=== PATIENT | male | born 1970 | race Caucasian/White ===

== ENCOUNTER 2018-03-17 19:49 | Emergency (ER) | payer MEDICAID ==
[~2018-03-17] VITALS: Ht 188 cm; Wt 72.0 kg
[~2018-03-17 19:49] MED LIST: CLIN150C8 PO
[2018-03-17 20:04] VITALS: BP 126/75
[2018-03-17] MEDS ORDERED: CLIN300C85 PO (21:16)
== END 2018-03-17 21:32 | disposition home or self-care (01) ==
LOC: ER 19:49
DX: K08.89 Other specified disorders of teeth and supporting structures (principal); M19.90 Unspecified osteoarthritis, unspecified site; G89.29 Other chronic pain; F17.200 Nicotine dependence, unspecified, uncomplicated; Z88.0 Allergy status to penicillin; Z79.2 Long term (current) use of antibiotics
CPT/HCPCS: 99283

== ENCOUNTER 2018-06-17 21:37 | Emergency (ER) | payer MEDICAID ==
[~2018-06-17] VITALS: Ht 188 cm; Wt 52.0 kg
[~2018-06-17 21:37] MED LIST changes: +CLIN-96 PO
[2018-06-17 21:42] VITALS: BP 153/90
== END 2018-06-17 22:52 | disposition home or self-care (01) ==
LOC: ER 21:38
DX: R59.0 Localized enlarged lymph nodes (principal); G89.29 Other chronic pain; M19.90 Unspecified osteoarthritis, unspecified site; F12.90 Cannabis use, unspecified, uncomplicated; F17.200 Nicotine dependence, unspecified, uncomplicated; Z88.0 Allergy status to penicillin; Z79.899 Other long term (current) drug therapy
CPT/HCPCS: 99281

== ENCOUNTER 2018-11-16 11:08 | Emergency (ER) | payer MEDICAID ==
[~2018-11-16] VITALS: Ht 188 cm; Wt 77.3 kg
[2018-11-16 11:10] VITALS: BP 123/73
--- NOTE | 2018-11-16 11:48 | NUR ---
patient very drowsy, moving all extremities wnl and answering questions appropriately
== END 2018-11-16 12:55 | disposition home or self-care (01) ==
LOC: ER 11:09
DX: E86.0 Dehydration (principal); R41.0 Disorientation, unspecified; M19.90 Unspecified osteoarthritis, unspecified site; G89.29 Other chronic pain; F12.90 Cannabis use, unspecified, uncomplicated; Z02.89 Encounter for other administrative examinations; Z88.0 Allergy status to penicillin; Z79.2 Long term (current) use of antibiotics; Z88.8 Allergy status to other drugs, medicaments and biological substances
CPT/HCPCS: 99284

== ENCOUNTER 2019-01-15 04:52 | Emergency (ER) | payer MEDICAID ==
[~2019-01-15] VITALS: Ht 188 cm; Wt 77.3 kg
[2019-01-15 04:58] VITALS: BP 126/88
[2019-01-15] MEDS ORDERED: ibuprofen tablet 400 MG TABLET PO ONE (05:10)
--- NOTE | 2019-01-15 05:37 | NUR ---
here for a medical screening exam for [place]. No c/o anything.
== END 2019-01-15 05:39 | disposition home or self-care (01) ==
LOC: ER 04:53
DX: F10.10 Alcohol abuse, uncomplicated (principal); M19.90 Unspecified osteoarthritis, unspecified site; G89.29 Other chronic pain; F12.90 Cannabis use, unspecified, uncomplicated; Z88.0 Allergy status to penicillin; Z79.899 Other long term (current) drug therapy; Z59.0 Homelessness; Y90.9 Presence of alcohol in blood, level not specified
CPT/HCPCS: 99282

== ENCOUNTER 2020-05-15 10:48 | Emergency (ER) | payer MEDICAID, OTHER ==
[~2020-05-15] VITALS: Ht 188 cm; Wt 84.1 kg
[~2020-05-15 10:48] MED LIST changes: -CLIN-96 PO; +CLIN-97 PO
[2020-05-15 11:00] VITALS: BP 174/87
== END 2020-05-15 12:32 | disposition home or self-care (01) ==
LOC: ER 10:52
DX: Z02.89 Encounter for other administrative examinations (principal); M19.90 Unspecified osteoarthritis, unspecified site; G89.29 Other chronic pain; F12.90 Cannabis use, unspecified, uncomplicated; Z72.89 Other problems related to lifestyle; Z88.0 Allergy status to penicillin; Z79.2 Long term (current) use of antibiotics
CPT/HCPCS: 99281

== ENCOUNTER 2020-05-18 09:53 | Emergency (ER) | payer OTHER ==
[~2020-05-18] VITALS: Ht 188 cm; Wt 84.1 kg
[2020-05-18 10:13] VITALS: BP 111/77
--- NOTE | 2020-05-18 10:20 | NUR ---
PT RELEASED FROM [facility] METH. PT LAST USED PRIOR TO [facility] AND IS HERE FOR MED CLEAR TO [facility] IN LOCKE. PT STATES HIS PO WILL BE TAKING HIM TOMORROW AM APROX 0830 WITH PT ARRIVING APROX 1200. CALL PLACED TO [facility] [phone] TO INQUIRE IF THEY WILL ACCEPT THE MEDICAL CLEARANCE FROM THIS AM IT MIGHT BE OVER 24HR BECAUSE OF DRIVE TIME. PT GAVE PERMISSON TO SPEAK WITH STAFF AT [facility]. STAFF MEMBER STATES HE NEEDS TO CONTACT THE PERSON IN CHARGE AND ASKS IF WE COULD CALL BACK IN 45MIN-1HR.
--- NOTE | 2020-05-18 11:10 | NUR ---
CALLED BACK [facility] SPOKE WITH [facility] HE STATES [facility] PO IS BRING PT DOWN THEY WILL ACCEPT THE MED CLEAR.
== END 2020-05-18 11:27 | disposition home or self-care (01) ==
LOC: ER 09:53
DX: F10.20 Alcohol dependence, uncomplicated (principal); M19.90 Unspecified osteoarthritis, unspecified site; G89.29 Other chronic pain; F12.90 Cannabis use, unspecified, uncomplicated; F15.90 Other stimulant use, unspecified, uncomplicated; Z87.81 Personal history of (healed) traumatic fracture; Z88.0 Allergy status to penicillin; Z79.2 Long term (current) use of antibiotics; Y90.9 Presence of alcohol in blood, level not specified
CPT/HCPCS: 99281

== ENCOUNTER 2021-10-16 22:08 | Emergency (ER) | payer MEDICAID ==
[~2021-10-16] VITALS: Ht 188 cm; Wt 68.2 kg
[2021-10-16 22:18] VITALS: BP 142/99
--- NOTE | 2021-10-17 00:02 | NUR ---
PT STATES HE CANT WAIT ANY LONGER HE HAS TO WORK IN THE MORNING. PT LEFT STATING HE'LL BE BACK IN THE MORNING. INFORMED.
== END 2021-10-17 00:04 | disposition home or self-care (01) ==
LOC: ER 22:08
DX: R21 Rash and other nonspecific skin eruption (principal); Z53.21 Procedure and treatment not carried out due to patient leaving prior to being seen by health care provider

== ENCOUNTER 2023-09-15 19:25 | Emergency (ER) | payer MEDICAID ==
[~2023-09-15] VITALS: Ht 188 cm; Wt 72.0 kg
[~2023-09-15 19:25] MED LIST changes: +CLIN-214 PO; -CLIN150C8 PO
[2023-09-15 19:31] VITALS: BP 135/93; PULSE 94; O2SAT 96
[2023-09-15] MEDS: buprenorphine/naloxone 8MG-2MG SUBlingual film SL ONE (20:51)
[2023-09-15 20:55] VITALS: RESP 17; TEMP 97.5
== END 2023-09-15 20:55 | disposition home or self-care (01) ==
LOC: ER 19:25
DX: F11.20 Opioid dependence, uncomplicated (principal)
CPT/HCPCS: 99283

== ENCOUNTER 2024-06-03 22:26 | Emergency (ER) | payer MEDICAID ==
[~2024-06-03] VITALS: Ht 188 cm; Wt 90.0 kg
[2024-06-03 22:33] VITALS: BP 150/81; PULSE 84; RESP 18; TEMP 98.2; O2SAT 97
== END 2024-06-03 23:02 | disposition home or self-care (01) ==
LOC: ER 22:27
DX: L73.1 Pseudofolliculitis barbae (principal); M19.90 Unspecified osteoarthritis, unspecified site; G89.29 Other chronic pain; Z88.0 Allergy status to penicillin; Z79.2 Long term (current) use of antibiotics
CPT/HCPCS: 99281

== ENCOUNTER 2024-06-22 05:10 | Emergency (ER) | payer MEDICAID ==
[~2024-06-22] VITALS: Ht 188 cm; Wt 48.3 kg
[2024-06-22 05:11] VITALS: BP 136/99; PULSE 80; TEMP 96.6; O2SAT 98
[2024-06-22 06:05] VITALS: RESP 18
[2024-06-22] MEDS ORDERED: ONDA-243 PO (06:56)
[2024-06-22] MEDS: ondansetron 4mg rapidly disintigrating tab PO ONE (07:07)
[2024-06-23] MEDS ORDERED: NALO4SPR22 (21:38)
[2024-06-23] MEDS ORDERED: BUPR1FIL20 (21:38)
[2024-06-23] MEDS ORDERED: GABA-1555 (21:38)
[2024-06-23] MEDS ORDERED: HYDR-3686 PO (21:38)
== END 2024-06-22 07:28 | disposition home or self-care (01) ==
LOC: ER 05:11
DX: B34.9 Viral infection, unspecified (principal); F12.90 Cannabis use, unspecified, uncomplicated; F15.90 Other stimulant use, unspecified, uncomplicated; M19.90 Unspecified osteoarthritis, unspecified site; G89.29 Other chronic pain; M54.9 Dorsalgia, unspecified; F17.200 Nicotine dependence, unspecified, uncomplicated; F10.10 Alcohol abuse, uncomplicated; Z59.00 Homelessness unspecified; Z88.0 Allergy status to penicillin; Y90.9 Presence of alcohol in blood, level not specified
CPT/HCPCS: 71046; 87502; 87503; 99284

== ENCOUNTER 2024-06-23 20:46 | Emergency (ER) | payer MEDICAID ==
[~2024-06-23] VITALS: Ht 188 cm; Wt 72.7 kg
[~2024-06-23 20:46] MED LIST changes: +ONDA-243 PO
[2024-06-23] MEDS ORDERED: HYDR-3686 PO (21:38)
[2024-06-23] MEDS ORDERED: BUPR1FIL20 (21:38)
[2024-06-23] MEDS ORDERED: NALO4SPR22 (21:38)
[2024-06-23] MEDS ORDERED: GABA-1555 (21:38)
[2024-06-23 21:39] LABS: BASOPHILS # (AUTO) 0.1 X10'3 (0-0.2); BASOPHILS % (AUTO) 0.8 % (0-1); EOSINOPHILS # (AUTO) 0.1 X10'3 (0-0.9); HEMATOCRIT 39.7 % (42.0-52.0); HEMOGLOBIN 13.5 g/dl (14.0-17.9); LYMPHOCYTES # (AUTO) 1.8 X10'3 (1.1-4.8); LYMPHOCYTES % (AUTO) 29.1 % (21-51); MEAN CORPUSCULAR HEMOGLOBIN 31.8 PG (27.0-31.0); MEAN CORPUSCULAR VOLUME 93.6 FL (78-98); MEAN PLATELET VOLUME 6.5 FL (7.4-10.4); MONOCYTES # (AUTO) 0.8 X10'3 (0-0.9); MONOCYTES % (AUTO) 12.3 % (2-12); NEUTROPHILS # (AUTO) 3.4 X10'3 (1.8-7.7); NEUTROPHILS % (AUTO) 55.8 % (42-75); PLATELET COUNT 416 X10'3 (140-440); RED BLOOD COUNT 4.24 X10'6 (4.70-6.10); RED CELL DISTRIBUTION WIDTH 13.3 % (11.5-14.5); WHITE BLOOD COUNT 6.1 X10'3 (4.5-11.0)
[2024-06-23 21:44] VITALS: BP 134/93; PULSE 68; RESP 18; TEMP 98.1; O2SAT 99
[2024-06-23] MEDS ORDERED: dicyclomine 10 MG capsule PO ONE (21:45)
[2024-06-23 21:50] LABS: ALANINE AMINOTRANSFERASE 52 U/L (12-78); ALBUMIN 3.8 G/DL (3.4-5.0); ALBUMIN/GLOBULIN RATIO 1.1 (1.1-1.5); ALKALINE PHOSPHATASE 67 IU/L (46-116); ANION GAP 6 (8-16); ASPARTATE AMINO TRANSFERASE 71 U/L (10-37); BILIRUBIN,TOTAL 0.6 MG/DL (0.1-1.0); BLOOD UREA NITROGEN 21 MG/DL (7-18); BUN/CREATININE RATIO 24.1 (10.0-20.0); CALCIUM 9.4 MG/DL (8.5-10.1); CHLORIDE 100 MMOL/L (99-107); CREATININE 0.87 MG/DL (0.60-1.10); GLUCOSE 146 MG/DL (70-104); LIPASE 21 U/L (16-77); POTASSIUM 4.2 MMOL/L (3.5-5.1); SODIUM 137 MMOL/L (135-145); TOTAL CARBON DIOXIDE 30.8 MMOL/L (24-32); TOTAL PROTEIN 7.2 G/DL (6.4-8.2); eCRCL 100 ML/MIN; eGFR > 90 ML/MIN
[2024-06-23] MEDS ORDERED: iohexol 300mg/ml 100ml inj. ONE (21:54)
[2024-06-23 22:13] LABS: ETHANOL < 10 MG/DL (<10)
[2024-06-23 22:48] LABS: BILIRUBIN,URINE NEGATIVE (Neg); CLARITY,URINE CLEAR (Clear); COLOR,URINE YELLOW (Yellow); GLUCOSE, URINE NEGATIVE (Neg); KETONES,URINE NEGATIVE (Neg); LEUKOCYTE ESTERASE ,URINE NEGATIVE (Neg); NITRITES, URINE NEGATIVE (Neg); OCCULT BLOOD,URINE NEGATIVE (Neg); PROTEIN,URINE NEGATIVE (Neg)
[2024-06-23 22:53] LABS: UA COLLECTION TYPE NON-SPECIFIED
[2024-06-23 23:15] LABS: URINE AMPHETAMINE SCREEN POSITIVE (Neg); URINE BARBITUATE SCREEN NEGATIVE (Neg); URINE BENZODIAZEPINES SCREEN NEGATIVE (Neg); URINE CANNABINOID SCREEN POSITIVE (Neg); URINE COCAINE SCREEN NEGATIVE (Neg); URINE METHADONE SCREEN NEGATIVE (Neg); URINE OPIATE SCREEN NEGATIVE (Neg); URINE PHENCYCLIDINE SCREEN NEGATIVE (Neg)
== END 2024-06-23 23:02 | disposition left against medical advice (07) ==
LOC: ER 20:47
DX: R10.84 Generalized abdominal pain (principal); M19.90 Unspecified osteoarthritis, unspecified site; G89.29 Other chronic pain; M54.9 Dorsalgia, unspecified; F12.90 Cannabis use, unspecified, uncomplicated; F15.90 Other stimulant use, unspecified, uncomplicated; F10.10 Alcohol abuse, uncomplicated; Z88.0 Allergy status to penicillin; Y90.9 Presence of alcohol in blood, level not specified
CPT/HCPCS: 36415; 80053; 80305; 80320; 81003; 83690; 85025; 99283; Q9967

== ENCOUNTER 2024-08-22 02:15 | Emergency (ER) | payer MEDICAID ==
[~2024-08-22] VITALS: Ht 185.4 cm; Wt 71.4 kg
[~2024-08-22 02:15] MED LIST changes: +BUPR1FIL20; +GABA-1555; +HYDR-3686 PO; +NALO4SPR22
[2024-08-22] MEDS ORDERED: INDO-12 PO (04:59)
--- NOTE | 2024-08-22 05:01 | Physician Documentation ---
History of Present Illness ~ General Chief Complaint: Multiple Medical Complaints Stated Complaint: EAR PAIN,DENTAL PAIN Time Seen by MD: 04:49 Primary Medical Doctor: none History of Present Illness Initial Comments Patient presents to the emergency room with chief complaint of dental pain. He just finished a course of antibiotics. He was states that the infection has improved but the pain persists. Taking ibuprofen and Tylenol with limited benefit. Affecting his sleep. He is on Suboxone Medication Reconciliation Allergies: Coded Allergies: Penicillins (Verified Adverse Reaction, Unknown, 06/23/24) Scheduled Clindamycin HCL* (Clindamycin HCL*), 1 CAP PO Q6H Clindamycin HCl (Clindamycin HCl CAPSULE), 1 CAP PO TID Scheduled PRN Hydroxyzine Hcl* (Atarax*), 1 TAB PO QID PRN for anxiety, (Reported) ONDANSETRON ODT 4mg tablet (Ondansetron Odt), 1 TAB PO Q6H PRN PRN for nausea/vomiting Miscellaneous Medications Buprenorphine HCl/Naloxone HCl (Buprenorphine-Nalox 8-2Mg Film), (Reported) Gabapentin (Gabapentin), 1, (Reported) Naloxone HCl (Naloxone HCl), (Reported) Past Medical History Past Medical History: Arthritis, Chronic Back Pain, Extremity Fracture Past Surgical History: no surgical history Alcohol Use: Abuse Drug Use: marijuana, methamphetamine Lives In: Home Occupation: employed Review of Systems ROS All review of systems negative except as per HPI Physical Exam Physical Exam Vital Signs: Temperature: 98.3, Source: Oral, Heart Rate: 71, Respiratory Rate: 16, BP: 134/89, Pulse Oximetry: 99, Weight: 71.410 Oxygen Flow Rate: 0 Physical Exam General: Patient is awake, alert, oriented x4 in no acute distress and well appearing.~ Head: Normocephalic and atraumatic. Eyes: Conjunctival normal. EOMI. PERRL. Tympanic membrane clear ENT: Mucous membranes moist. Terrible dentition but no abscess Neck: Supple, trachea is midline. Chest: Clear to auscultation bilaterally without rales, rhonchi, or wheezes. There is no accessory muscle use or retractions. Cardiac: RRR without murmurs, gallops, or rubs. Progress Results/Orders Results/Orders Vital Signs 08/22/24 02:20 Temp 98.3 Pulse 71 Resp 16 B/P (MAP) 134/89 Pulse Ox 99 O2 Flow Rate 0 Medical Decision Making Findings Patient was reports that he needs to go to the dentist to have his teeth pulled he acknowledges the responsibility to do so. ER precautions reviewed regarding worsening dental pain or abscess formation or fevers. I will not be prescribing additional antibiotics at this time. Departure Disposition: HOME / SELF CARE / HOMELESS Impression: Primary Impression: Pain, dental Condition: Stable Discharge Instructions: Dental Pain, Hlul-dj-Paan Additional Instructions: Continue with your Tylenol. Follow up with dentist. Return for fevers Referrals: NO PRIMARY CARE PROVIDER (PCP) Prescriptions Indomethacin (Indomethacin) 25 Mg Capsule 1 CAP PO Q8H, #15 CAP 0 Refills with food Prov: DEXTER BYRNE MD 08/22/24 Education Educated: Patient Educated regarding: diagnosis, treatment, need for follow up Signature Scribe Signature: No scribe Attestation: The note accurately reflects work and decisions made by me.Dexter Byrne MD 08/22/24 05:00 DEXTER BYRNE MD August 22, 2024 05:01
[2024-08-22] MEDS: HYDROcodone/acetaminophen 5mg/325mg tablet PO ONE (05:08)
[2024-08-22 05:11] VITALS: BP 130/86; PULSE 69; RESP 18; TEMP 98.6; O2SAT 99
== END 2024-08-22 05:12 | disposition home or self-care (01) ==
LOC: ER 02:16
DX: K08.89 Other specified disorders of teeth and supporting structures (principal); M19.90 Unspecified osteoarthritis, unspecified site; G89.29 Other chronic pain; M54.9 Dorsalgia, unspecified; F12.90 Cannabis use, unspecified, uncomplicated; F15.90 Other stimulant use, unspecified, uncomplicated; F10.10 Alcohol abuse, uncomplicated; Z88.0 Allergy status to penicillin; Y90.9 Presence of alcohol in blood, level not specified
CPT/HCPCS: 99283

== ENCOUNTER 2024-09-07 23:46 | Emergency (ER) | payer MEDICAID ==
[~2024-09-07] VITALS: Ht 188 cm; Wt 72.7 kg
[~2024-09-07 23:46] MED LIST changes: +INDO-12 PO
[2024-09-07 23:49] VITALS: TEMP 98.5
[2024-09-08 00:58] LABS: BASOPHILS # (AUTO) 0.1 X10'3 (0-0.2); BASOPHILS % (AUTO) 0.7 % (0-1); EOSINOPHILS # (AUTO) 0.3 X10'3 (0-0.9); EOSINOPHILS % (AUTO) 3.9 % (0-6); HEMATOCRIT 31.8 % (42.0-52.0); HEMOGLOBIN 11.1 g/dl (14.0-17.9); LYMPHOCYTES % (AUTO) 38.6 % (21-51); MEAN CORPUSCULAR HEMOGLOBIN 30.9 PG (27.0-31.0); MEAN CORPUSCULAR HGB CONC 34.9 g/dL (33.0-36.5); MEAN CORPUSCULAR VOLUME 88.5 FL (78-98); MEAN PLATELET VOLUME 6.6 FL (7.4-10.4); MONOCYTES # (AUTO) 0.8 X10'3 (0-0.9); NEUTROPHILS # (AUTO) 3.6 X10'3 (1.8-7.7); NEUTROPHILS % (AUTO) 46.8 % (42-75); PLATELET COUNT 313 X10'3 (140-440); RED BLOOD COUNT 3.59 X10'6 (4.70-6.10); RED CELL DISTRIBUTION WIDTH 12.6 % (11.5-14.5); WHITE BLOOD COUNT 7.7 X10'3 (4.5-11.0)
[2024-09-08 01:09] LABS: ALANINE AMINOTRANSFERASE 27 U/L (12-78); ALBUMIN 3.7 G/DL (3.4-5.0); ALBUMIN/GLOBULIN RATIO 1.3 (1.1-1.5); ALKALINE PHOSPHATASE 46 IU/L (46-116); ANION GAP 6 (8-16); ASPARTATE AMINO TRANSFERASE 32 U/L (10-37); BILIRUBIN,TOTAL 0.7 MG/DL (0.1-1.0); BLOOD UREA NITROGEN 21 MG/DL (7-18); BUN/CREATININE RATIO 28.8 (10.0-20.0); CALCIUM 8.8 MG/DL (8.5-10.1); CHLORIDE 99 MMOL/L (99-107); CREATININE 0.73 MG/DL (0.60-1.10); GLUCOSE 91 MG/DL (70-104); POTASSIUM 3.9 MMOL/L (3.5-5.1); SODIUM 135 MMOL/L (135-145); TOTAL CARBON DIOXIDE 29.8 MMOL/L (24-32); TOTAL PROTEIN 6.5 G/DL (6.4-8.2); eCRCL 119 ML/MIN; eGFR > 90 ML/MIN
--- NOTE | 2024-09-08 04:37 | Physician Documentation ---
History of Present Illness ~ General Chief Complaint: See Chief Complaint Stated Complaint: MED REQUEST Time Seen by MD: 04:36 Primary Medical Doctor: none Source: patient History of Present Illness Initial Comments The patient presents, requesting a prescription for Suboxone. He tells me he was in a treatment program at [facility], but left AMA yesterday. He presents now requesting Suboxone because he does not have any. He tells me he has been on this for several years. He takes 12 mg in the morning any mg at night. He denies any opiate use since his last Suboxone dose. He denies any other acute concerns at this time. Medication Reconciliation Allergies: Coded Allergies: Penicillins (Verified Adverse Reaction, Unknown, 06/23/24) Scheduled Buprenorphine Hcl/Naloxone Hcl (Suboxone 8 Mg-2 Mg Sl Film), 1 STRIP SL BID Clindamycin HCL* (Clindamycin HCL*), 1 CAP PO Q6H Clindamycin HCl (Clindamycin HCl CAPSULE), 1 CAP PO TID Indomethacin (Indomethacin), 1 CAP PO Q8H Scheduled PRN Hydroxyzine Hcl* (Atarax*), 1 TAB PO QID PRN for anxiety, (Reported) ONDANSETRON ODT 4mg tablet (Ondansetron Odt), 1 TAB PO Q6H PRN PRN for nausea/vomiting Miscellaneous Medications Buprenorphine HCl/Naloxone HCl (Buprenorphine-Nalox 8-2Mg Film), (Reported) Gabapentin (Gabapentin), 1, (Reported) Naloxone HCl (Naloxone HCl), (Reported) Past Medical History Past Medical History: Arthritis, Chronic Back Pain, Extremity Fracture Past Surgical History: no surgical history Alcohol Use: Abuse Drug Use: marijuana, methamphetamine Lives In: Home Occupation: employed Review of Systems Constitutional: Denies: fever Gastrointestinal: Denies: nausea, vomiting Physical Exam Physical Exam Vital Signs: Temperature: 98.5, Source: Oral, Heart Rate: 64, Respiratory Rate: 16, BP: 126/72, Pulse Oximetry: 96, Weight: 72.730 Oxygen Flow Rate: 0 Physical Exam General: This is a thin middle-aged man, does not appear in distress HEENT: Atraumatic, oropharynx is moist Heart: Regular rate, normal-appearing peripheral perfusion Lungs: normal work of breathing, normal oxygen saturation on room air Neuro: Alert and oriented, no focal deficits Psychiatric: Calm and cooperative with exam, does not appear tremulous, does not appear to have acute symptoms of withdrawal, does not appear acutely intoxicated Progress Results/Orders Results/Orders Completed Orders - CYNDI OMALLEY MD Cbc/Diff (09/08/24 00:01) CMP (09/08/24 00:01) Buprenorphine/Naloxone Sl Film (Suboxone (09/08/24 05:00) Vital Signs 09/07/24 09/08/24 09/08/24 23:49 04:41 04:41 Temp 98.5 Pulse 64 70 Resp 16 16 B/P (MAP) 126/72 127/86 (100) Pulse Ox 96 98 O2 Flow Rate 0 0 Laboratory Tests Test 09/08/24 00:33 White Blood Count 7.7 Red Blood Count 3.59 L Hemoglobin 11.1 L Hematocrit 31.8 L Mean Corpuscular Volume 88.5 Mean Corpuscular Hemoglobin 30.9 Mean Corpuscular Hemoglobin Concent 34.9 Red Cell Distribution Width 12.6 Platelet Count 313 Mean Platelet Volume 6.6 L Neutrophils (%) (Auto) 46.8 Lymphocytes (%) (Auto) 38.6 Monocytes (%) (Auto) 10.0 Eosinophils (%) (Auto) 3.9 Basophils (%) (Auto) 0.7 Neutrophils # (Auto) 3.6 Lymphocytes # (Auto) 3.0 Monocytes # (Auto) 0.8 Eosinophils # (Auto) 0.3 Basophils # (Auto) 0.1 CBC Comment Sodium Level 135 Potassium Level 3.9 Chloride Level 99 Carbon Dioxide Level 29.8 Anion Gap 6 L Blood Urea Nitrogen 21 H Creatinine 0.73 Estimated GFR/1.73 m2 > 90 BUN/Creatinine Ratio 28.8 H Glucose Level 91 Calcium Level 8.8 Total Bilirubin 0.7 Aspartate Amino Transf (AST/SGOT) 32 Alanine Aminotransferase (ALT/SGPT) 27 Alkaline Phosphatase 46 Total Protein 6.5 Albumin 3.7 Globulin 2.8 Albumin/Globulin Ratio 1.3 Chemistry Comments Medical Decision Making Differential Diagnosis The patient presents requesting Suboxone. He currently does not appear to be in opiate withdrawal or intoxication. He denies any recent opiate use. I discussed the risks of withdrawal if he has been using other opiates. Following this he was given his home dose of Suboxone and a short prescription to get him through the weekend. He was encouraged to follow up with his substance abuse team as soon as possible. Basic labs were ordered from triage which are unremarkable. He has no other medical complaints to warrant further workup or testing at this time. Departure Time of Disposition: 04:57 Disposition: 01 HOME / SELF CARE / HOMELESS Impression: Primary Impression: Opiate dependence Condition: Stable Referrals: NO PRIMARY CARE PROVIDER (PCP) Prescriptions Buprenorphine Hcl/Naloxone Hcl (Suboxone 8 Mg-2 Mg Sl Film) 8 Mg-2 Mg Film 1 STRIP SL BID for 6 Days, #12 STRIP Prov: CYNDI OMALLEY MD 09/08/24 Education Educated: Patient Educated regarding: need for follow up Signature Scribe Signature: na Attestation: CYNDI Bazan MD September 08, 2024 04:37
[2024-09-08] MEDS ORDERED: BUPR1FIL3 SL (04:59)
[2024-09-08] MEDS: buprenorphine/naloxone 8MG-2MG SUBlingual film SL ONE (05:17)
[2024-09-08 05:26] VITALS: BP 133/83; PULSE 64; RESP 16; O2SAT 100
== END 2024-09-08 05:29 | disposition home or self-care (01) ==
LOC: ER 23:47
DX: F11.20 Opioid dependence, uncomplicated (principal); M19.90 Unspecified osteoarthritis, unspecified site; F12.90 Cannabis use, unspecified, uncomplicated; F15.90 Other stimulant use, unspecified, uncomplicated; F10.10 Alcohol abuse, uncomplicated; Z88.0 Allergy status to penicillin; Z79.899 Other long term (current) drug therapy; Y90.9 Presence of alcohol in blood, level not specified
CPT/HCPCS: 36415; 80053; 85025; 99283

== ENCOUNTER 2024-12-20 12:31 | Emergency (ER) | payer MEDICAID ==
[~2024-12-20] VITALS: Ht 188 cm; Wt 72.7 kg
[~2024-12-20 12:31] MED LIST changes: +CLIN-224 PO; -CLIN-97 PO
[2024-12-20] MEDS: LIDOcaine 1% W/epiNEPHrine 1:100,000 20ml vial IJ ONE (12:40)
--- NOTE | 2024-12-20 12:41 | Physician Documentation ---
History of Present Illness ~ Chief Complaint: Abscess Stated Complaint: ABSCESS Time Seen by MD: 12:43 Primary Medical Doctor: none HPI This is a 54-year-old male who presents to the emergency department today due to a large left buttock abscess. He denies chills or fever, body aches, or any other symptoms. He reports that he is on MAT program for opioid abuse history. Tetanus Within 5 Years: Yes Medication Reconciliation Allergies: Coded Allergies: Penicillins (Verified Adverse Reaction, Unknown, 06/23/24) Scheduled Clindamycin HCL* (Clindamycin HCL*), 1 CAP PO Q6H Clindamycin HCl (Clindamycin HCl CAPSULE), 1 CAP PO TID Doxycycline Hyclate (Doxycycline Hyclate), 1 CAP PO Q12H Indomethacin (Indomethacin), 1 CAP PO Q8H Scheduled PRN Hydroxyzine Hcl* (Atarax*), 1 TAB PO QID PRN for anxiety, (Reported) ONDANSETRON ODT 4mg tablet (Ondansetron Odt), 1 TAB PO Q6H PRN PRN for nausea/vomiting Miscellaneous Medications Buprenorphine HCl/Naloxone HCl (Buprenorphine-Nalox 8-2Mg Film), (Reported) Gabapentin (Gabapentin), 1, (Reported) Naloxone HCl (Naloxone HCl), (Reported) Past Medical History Past Medical History: Arthritis, Chronic Back Pain, Extremity Fracture Past Surgical History: no surgical history Alcohol Use: Abuse Drug Use: marijuana, methamphetamine Lives In: Home Occupation: employed Review of Systems ROS As stated above in the HPI, otherwise all systems are reviewed and negative. Physical Exam Vital Signs: Temperature: 97.9, Source: Oral, Heart Rate: 62, Respiratory Rate: 17, BP: 119/68, Pulse Oximetry: 99, Weight: 72.730 Oxygen Flow Rate: 0 Physical Exam General: Alert, no apparent distress. Neck: Full range of motion. Respiratory: Lungs clear, no respiratory distress. Chest: No accessory muscle use. Cardiovascular: Regular rate and rhythm, no murmurs. Gastrointestinal: Soft, nontender, nondistended. Bowels sounds present. Extremities: Normal range of motion, no deformity. Neurologic: Oriented x4. Psychiatric: Normal mood and affect. Skin: Normal color, warm and dry. No edema, no ecchymosis. Large abscess with dark necrotic center to left buttock. (+) surrounding erythema present. Procedures I & D Procedure : Anesthesia: Lidocaine w/ Epi Volume Anesthetic (mls): 2 Blade Size: 11 Prep/Supplies: irrigated Incision: mass incised, pus drained, blood drained Tolerated Procedure Well?: yes, no complications Procedure Note Large abcess with necrotic center located center of left buttock. Culture obtained, sent. Center of wound packed with small amount ribbon gauze. Progress Progress Note 1450: Patient just now placed in ED room from [facility]. Remains well appearing. Discussed plan for I&D, IV fluids, antibiotics. Results/Orders Results/Orders Orders - TIM FALCON [employer]ROLLER Culture Blood (12/20/24 12:39) Cult (Aer) Routine C&S+Gram St (12/20/24 12:39) Dressing Orders (12/20/24 12:39) Laceration/I&D Tray Set Up (12/20/24 12:39) Wound Care Orders (12/20/24 12:39) * Iv Access / Saline Lock * (12/20/24 14:15) Observation Status Start (12/20/24 14:18) Completed Orders - TIM FALCON [employer]ROLLER BMP (12/20/24 12:39) Cbc/Diff (12/20/24 12:39) Procalcitonin (12/20/24 12:39) LA (12/20/24 12:39) Lidocaine 1% W/Epi 1:100,000 (Xylocaine (12/20/24 12:40) Tetanus/Pertuss/Diph Acell/Pf (Boostrix (12/20/24 12:40) Normal Saline 1000ml (0.9% Sodium Chlori (12/20/24 14:15) Normal Saline 1000ml (0.9% Sodium Chlori (12/20/24 14:15) Ceftriaxone/M9j-Lprmiwrg 1gm (Rocephin 1 (12/20/24 14:15) Acetaminophen 325mg Tablet (Tylenol Tabl (12/20/24 14:20) Potassium Cl 20meq/15ml Oral (Potassium (12/20/24 14:20) Lactic,2hr (12/20/24 14:46) Medications Received in ER Medications (Trade) Dose Ordered Sig/Dusty Route PRN Reason Start Time Stop Time Status Last Admin Dose Admin (Boostrix vaccine syringe) 0.5 ml ONCE ONCE IMVAC 12/20/24 12:40 12/20/24 12:42 DC 12/20/24 15:30 0.5 ML Sodium Chloride 1,000 ml @ 1,000 mls/hr ONCE ONCE IV 12/20/24 14:15 12/20/24 15:14 DC 12/20/24 15:28 1,000 MLS/HR Sodium Chloride 1,000 ml @ 1,000 mls/hr ONCE ONCE IV 12/20/24 14:15 12/20/24 15:14 DC 12/20/24 15:29 1,000 MLS/HR Ceftriaxone Sodium 50 ml @ 100 mls/hr ONCE ONCE IV 12/20/24 14:15 12/20/24 14:44 DC 12/20/24 15:28 100 MLS/HR (Tylenol tablet) 650 mg ONCE ONCE PO 12/20/24 14:20 12/20/24 14:21 DC 12/20/24 15:29 650 MG (POTASSIUM Cl 20mEq/15mL oral solution) 10 meq ONCE ONCE PO 12/20/24 14:20 12/20/24 14:26 DC 12/20/24 15:29 10 MEQ Vital Signs 12/20/24 12/20/24 12/20/24 12:37 15:00 16:00 Temp 97.9 97.9 Pulse 62 71 Resp 17 14 15 B/P (MAP) 119/68 118/69 (85) Pulse Ox 99 99 O2 Flow Rate 0 0 Laboratory Tests Test 12/20/24 12:53 12/20/24 15:09 White Blood Count 6.3 Red Blood Count 4.08 L Hemoglobin 12.5 L Hematocrit 36.6 L Mean Corpuscular Volume 89.7 Mean Corpuscular Hemoglobin 30.5 Mean Corpuscular Hemoglobin Concent 34.0 Red Cell Distribution Width 14.1 Platelet Count 369 Mean Platelet Volume 6.4 L Neutrophils (%) (Auto) 49.8 Lymphocytes (%) (Auto) 33.2 Monocytes (%) (Auto) 11.6 Eosinophils (%) (Auto) 4.9 Basophils (%) (Auto) 0.5 Neutrophils # (Auto) 3.2 Lymphocytes # (Auto) 2.1 Monocytes # (Auto) 0.7 Eosinophils # (Auto) 0.3 Basophils # (Auto) 0.0 CBC Comment Sodium Level 135 Potassium Level 3.3 L Chloride Level 98 L Carbon Dioxide Level 28.5 Anion Gap 9 Blood Urea Nitrogen 13 Creatinine 1.13 H Estimated GFR/1.73 m2 68 BUN/Creatinine Ratio 11.5 Glucose Level 107 H Lactic Acid Level 2.1 H 0.7 Calcium Level 8.9 Albumin 3.3 L Procalcitonin < 0.05 Chemistry Comments Microbiology Date/Time Source Procedure Growth Status 12/20/24 12:55 Blood Arm Right Blood Culture - Preliminary NEGATIVE (LESS THAN 24 HOURS) Resulted Medical Decision Making Additional Comment 54 yr old male with left buttock abscess with necrotic center. Mildly elevated lactic acid, was treated in ER with two liters of NS as a bolus. Ceftriaxone IV also administered. I&D done. Will go home on doxycycline and is to return tomorrow for wound recheck with packing removal. Culture from wound is pending. Repeat lactic acid normal. Departure Time of Disposition: 15:51 Disposition: HOME / SELF CARE / HOMELESS Impression: Primary Impression: Abscess Condition: Stable Discharge Instructions: Abscess, Care After Additional Instructions: Leave the dressing in place tonight. Return tomorrow for packing removal and wound recheck. Take the antibiotics as prescribed. Return if worse at any time. Referrals: NO PRIMARY CARE PROVIDER (PCP) Prescriptions Doxycycline Hyclate (Doxycycline Hyclate) 100 Mg Capsule 1 CAP PO Q12H for 7 Days, #14 CAP Prov: TIM FALCON NP 12/20/24 Education Educated: Patient Educated regarding: diagnosis, treatment, prognosis, need for follow up Signature Scribe Signature: x Attestation: The note accurately reflects work and decisions made by me.Tim Falcon - IVELISSE 12/20/24 12:42 TIM FALCON NP Dec 20, 2024 12:41
[2024-12-20 13:11] LABS: MEAN PLATELET VOLUME 6.4 FL (7.4-10.4); RED CELL DISTRIBUTION WIDTH 14.1 % (11.5-14.5)
[2024-12-20 13:28] LABS: CREATININE 1.13 MG/DL (0.60-1.10); TOTAL CARBON DIOXIDE 28.5 MMOL/L (24-32); eCRCL 77 ML/MIN; eGFR 68 ML/MIN
[2024-12-20 15:00] VITALS: BP 118/69; PULSE 71; TEMP 97.9; O2SAT 99
[2024-12-20] MEDS: normal saline 1000ml 1,000 ML IV ONE ×2 (15:28→15:29)
[2024-12-20] MEDS: CefTRIAXone/D5W-Rocephin 1gm 50 ML IV ONE (15:28)
[2024-12-20] MEDS: POTASSIUM CHLORIDE 20 MEQ/15 ML oral solution PO ONE (15:29)
[2024-12-20] MEDS: TETanus/Pertussis (Acell)/Diphther VAC/PF (Tdap-Adult) 0.5ml syringe IMVAC ONE (15:30)
[2024-12-20] MEDS ORDERED: DOXY-411 PO (15:53)
[2024-12-20 16:00] VITALS: RESP 15
== END 2024-12-20 17:11 | disposition home or self-care (01) ==
LOC: ER 12:32
DX: L02.31 Cutaneous abscess of buttock (principal); F11.10 Opioid abuse, uncomplicated; M19.90 Unspecified osteoarthritis, unspecified site; G89.29 Other chronic pain; F12.90 Cannabis use, unspecified, uncomplicated; F15.90 Other stimulant use, unspecified, uncomplicated; Z88.0 Allergy status to penicillin; Z79.899 Other long term (current) drug therapy
CPT/HCPCS: 10060; 36415; 80048; 83605; 84145; 85025; 87040; 87070; 87077; 87186; 90471; 90715; 96365; 99284; A6407; J0696; J7030; A6253; A6449

== ENCOUNTER 2024-12-21 08:46 | Emergency (ER) | payer MEDICAID ==
[~2024-12-21] VITALS: Ht 188 cm; Wt 71.0 kg
[~2024-12-21 08:46] MED LIST changes: +DOXY-411 PO
[2024-12-21 08:54] VITALS: BP 126/55; PULSE 57; RESP 18; O2SAT 97
--- NOTE | 2024-12-21 10:06 | Physician Documentation ---
History of Present Illness ~ Chief Complaint: Wound Re-Check Stated Complaint: ABSCESS RECHECK Time Seen by MD: 09:15 OK to notify your PCP?: Yes Primary Medical Doctor: none Source: patient Mode of Arrival: POV Exam Limitations: no limitations HPI 54-year-old male who is here to have the abscess on his left buttock re- evaluated he states it was drained and packed here yesterday. He still has the original dressing in place. He states the pain has improved. He has no new concerns or complaints. No fever, chills, nausea or vomiting. Tetanus within 5 years?: Yes Medication Reconciliation Allergies: Coded Allergies: Penicillins (Verified Adverse Reaction, Unknown, 12/21/24) Scheduled Clindamycin HCL* (Clindamycin HCL*), 1 CAP PO Q6H Clindamycin HCl (Clindamycin HCl CAPSULE), 1 CAP PO TID Doxycycline Hyclate (Doxycycline Hyclate), 1 CAP PO Q12H Indomethacin (Indomethacin), 1 CAP PO Q8H Scheduled PRN Hydroxyzine Hcl* (Atarax*), 1 TAB PO QID PRN for anxiety, (Reported) ONDANSETRON ODT 4mg tablet (Ondansetron Odt), 1 TAB PO Q6H PRN PRN for nausea/vomiting Miscellaneous Medications Buprenorphine HCl/Naloxone HCl (Buprenorphine-Nalox 8-2Mg Film), (Reported) Gabapentin (Gabapentin), 1, (Reported) Naloxone HCl (Naloxone HCl), (Reported) Past Medical History Past Medical History: Arthritis, Chronic Back Pain, Extremity Fracture Past Surgical History: no surgical history Alcohol Use: Abuse Drug Use: marijuana, methamphetamine Lives In: Home Occupation: employed Review of Systems All Other Systems at this time: Reviewed and Negative Physical Exam Vital Signs: Temperature: 98.4, Source: Temporal, Heart Rate: 57, Respiratory Rate: 18, BP: 126/55, Pulse Oximetry: 97, Weight: 71.000 Oxygen Flow Rate: 0 Physical Exam General Appearance: Alert, WD/WN. NAD. HEENT: NCAT, PERRL, EOMI. Neck: Supple, trachea midline. Cardiovascular: RRR. No m/r/g. Lungs: CTAB. Breathing unlabored Extremities: Normal inspection. No edema. Skin: Left buttock patient has a very large dressing in place in the underlying 4x4's are saturated with a bloody fluid. Neurological: Alert and oriented x4, normal gait. Psychiatric: Affect congruent with mood. Procedures Procedures Dressing removed and packing removed, clean dressing placed, packing was not placed again as packing that was removed was not purulent Progress Results/Orders Results/Orders Vital Signs 12/21/24 08:54 Temp 98.4 Pulse 57 Resp 18 B/P (MAP) 126/55 Pulse Ox 97 O2 Flow Rate 0 Medical Decision Making Differential Dx:Considerations: Include: Abscess, Cellulitis, Dressing change, Healing wound, Other Departure Time of Disposition: 10:05 Disposition: 01 HOME / SELF CARE / HOMELESS Impression: Primary Impression: Abscess Condition: Stable Discharge Instructions: Abscess, Care After Additional Instructions: Change dressing daily If increasing pain, fever, or any other concerns return to ER Referrals: NO PRIMARY CARE PROVIDER (PCP) Education Educated: Patient, Family Educated regarding: diagnosis, treatment, need for follow up Signature Scribe Signature: x Attestation: KLAUDIA Chau Dec 21, 2024 10:06
[2024-12-21 12:48] VITALS: TEMP 98.4
== END 2024-12-21 12:49 | disposition home or self-care (01) ==
LOC: ER 08:46
DX: L02.31 Cutaneous abscess of buttock (principal); M19.90 Unspecified osteoarthritis, unspecified site; F12.90 Cannabis use, unspecified, uncomplicated; F15.90 Other stimulant use, unspecified, uncomplicated; Z88.0 Allergy status to penicillin
CPT/HCPCS: 99282; J7030; 99281; A6212; A6213; A6258

== ENCOUNTER 2024-12-24 00:21 | Emergency (ER) | payer MEDICAID ==
[~2024-12-24] VITALS: Ht 188 cm; Wt 72.7 kg
[2024-12-24 00:24] VITALS: BP 134/88; PULSE 88; RESP 14; TEMP 97.7; O2SAT 98
--- NOTE | 2024-12-24 00:56 | Physician Documentation ---
History of Present Illness ~ Chief Complaint: Wound Re-Check Stated Complaint: WOUND RE CHECK Time Seen by MD: 00:46 Primary Medical Doctor: none HPI 54 year old male had buttock abscess drained 2 days ago, is here for wound check. Reports improved pain, no fevers. Is taking antibiotics. Tetanus within 5 years?: Yes Medication Reconciliation Allergies: Coded Allergies: Penicillins (Verified Adverse Reaction, Unknown, 12/24/24) Scheduled Clindamycin HCL* (Clindamycin HCL*), 1 CAP PO Q6H Clindamycin HCl (Clindamycin HCl CAPSULE), 1 CAP PO TID Doxycycline Hyclate (Doxycycline Hyclate), 1 CAP PO Q12H Indomethacin (Indomethacin), 1 CAP PO Q8H Scheduled PRN Hydroxyzine Hcl* (Atarax*), 1 TAB PO QID PRN for anxiety, (Reported) ONDANSETRON ODT 4mg tablet (Ondansetron Odt), 1 TAB PO Q6H PRN PRN for nausea/vomiting Miscellaneous Medications Buprenorphine HCl/Naloxone HCl (Buprenorphine-Nalox 8-2Mg Film), (Reported) Gabapentin (Gabapentin), 1, (Reported) Naloxone HCl (Naloxone HCl), (Reported) Past Medical History Past Medical History: Arthritis, Chronic Back Pain, Extremity Fracture Past Surgical History: no surgical history Alcohol Use: Abuse Drug Use: marijuana, methamphetamine Lives In: Home Occupation: employed Review of Systems All Other Systems at this time: Reviewed and Negative Physical Exam Vital Signs: RN Vital Signs have been reviewed: Yes, Temperature: 97.7, Source: Oral, Heart Rate: 88, Respiratory Rate: 14, BP: 134/88, Pulse Oximetry: 98, Weight: 72.730 Oxygen Flow Rate: 0 Physical Exam HEENT: PERRL, moist oral mucosa, EOMI Pulmonary: No respiratory distress MSK: no deformity Skin: w/d/i, no rash; L buttock with well-healing I&D site Neuro: alert, nonfocal Psych: normal affect Progress Results/Orders Results/Orders Vital Signs 12/24/24 00:24 Temp 97.7 Pulse 88 Resp 14 B/P (MAP) 134/88 Pulse Ox 98 O2 Flow Rate 0 Medical Decision Making Findings 54 year old male with L buttock I&D site appearing well-healing. Discharge with reassurance and return precautions. Differential Dx:Considerations: Include: Abscess Departure Disposition: 01 HOME / SELF CARE / HOMELESS Impression: Primary Impression: Wound check, abscess Discharge Instructions: Wound Care, Adult Referrals: NO PRIMARY CARE PROVIDER (PCP) Education Educated: Patient Educated regarding: diagnosis, treatment, prognosis, need for follow up Signature Scribe Signature: . Attestation: . YNSE BLACK MD Dec 24, 2024 00:56
== END 2024-12-24 01:28 | disposition home or self-care (01) ==
LOC: ER 00:22
DX: L02.31 Cutaneous abscess of buttock (principal); G89.29 Other chronic pain; M19.90 Unspecified osteoarthritis, unspecified site; F12.90 Cannabis use, unspecified, uncomplicated; F15.90 Other stimulant use, unspecified, uncomplicated; Z88.0 Allergy status to penicillin
CPT/HCPCS: 99281

== ENCOUNTER 2024-12-26 01:06 | Emergency (ER) | payer MEDICAID ==
[~2024-12-26] VITALS: Ht 188 cm; Wt 70.6 kg
[2024-12-26 01:10] VITALS: TEMP 98.1
--- NOTE | 2024-12-26 01:19 | ELECTROCARDIOGRAPH REPORT ---
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
--- NOTE | 2024-12-26 01:38 | Physician Documentation ---
History of Present Illness ~ Chief Complaint: Shortness of Breath Stated Complaint: FLU SYMPTOMS Time Seen by MD: 01:37 Primary Medical Doctor: none HPI Patient presents to the emergency room with shortness of breath going on for a few days. States he woke up feeling short of breath. No chest pain Medication Reconciliation Allergies: Coded Allergies: Penicillins (Verified Adverse Reaction, Unknown, 12/24/24) Scheduled Clindamycin HCL* (Clindamycin HCL*), 1 CAP PO Q6H Clindamycin HCl (Clindamycin HCl CAPSULE), 1 CAP PO TID Doxycycline Hyclate (Doxycycline Hyclate), 1 CAP PO Q12H Indomethacin (Indomethacin), 1 CAP PO Q8H Scheduled PRN Hydroxyzine Hcl* (Atarax*), 1 TAB PO QID PRN for anxiety, (Reported) ONDANSETRON ODT 4mg tablet (Ondansetron Odt), 1 TAB PO Q6H PRN PRN for nausea/vomiting Miscellaneous Medications Buprenorphine HCl/Naloxone HCl (Buprenorphine-Nalox 8-2Mg Film), (Reported) Gabapentin (Gabapentin), 1, (Reported) Naloxone HCl (Naloxone HCl), (Reported) Past Medical History Past Medical History: Arthritis, Chronic Back Pain, Extremity Fracture Past Surgical History: no surgical history Alcohol Use: Abuse Drug Use: marijuana, methamphetamine Lives In: Home Occupation: employed Review of Systems ROS All review of systems negative except as per HPI Physical Exam Vital Signs: Temperature: 98.1, Heart Rate: 59, Respiratory Rate: 16, BP: 132/84, Pulse Oximetry: 99, Weight: 70.600 Oxygen Flow Rate: 0 Physical Exam General: Patient is awake, alert, oriented x4 in no acute distress and well appearing.~ Head: Normocephalic and atraumatic. Eyes: Conjunctival normal. EOMI. PERRL. ENT: Mucous membranes moist. Neck: Supple, trachea is midline. Chest: Clear to auscultation bilaterally without rales, rhonchi, or wheezes. There is no accessory muscle use or retractions. Cardiac: RRR without murmurs, gallops, or rubs. Extremities: No dependent edema, 2+ dorsalis pedis pulses bilaterally, no calf tenderness to palpation Progress Results/Orders Results/Orders Orders - DEXTER BYRNE MD Chest,Single View (12/26/24 01:14) Monitor (12/26/24 01:14) Saline Lock (12/26/24 01:14) Oxygen (12/26/24 01:14) Hs Troponin I W Calculations (12/26/24 03:14) Hs Troponin I W Calculations (12/26/24 04:14) Covid19 Binax Poc Result Entry (12/26/24 01:39) Completed Orders - DEXTER BYRNE MD Chest,Single View (12/26/24 01:14) Cbc/Diff (12/26/24 01:14) BMP (12/26/24 01:14) PBNP (12/26/24 01:14) Electrocardiogram (12/26/24 01:14) Hs Troponin I W Calculations (12/26/24 01:14) Acetaminophen 325mg Tablet (Tylenol Tabl (12/26/24 01:40) Medications Received in ER Medications (Trade) Dose Ordered Sig/Dusty Route PRN Reason Start Time Stop Time Status Last Admin Dose Admin (Tylenol tablet) 650 mg ONCE ONCE PO 12/26/24 01:40 12/26/24 01:41 DC 12/26/24 01:51 650 MG Vital Signs 12/26/24 12/26/24 12/26/24 12/26/24 01:10 01:40 01:40 02:16 Temp 98.1 Pulse 59 61 61 Resp 16 18 16 16 B/P (MAP) 132/84 120/81 (94) 117/80 (92) Pulse Ox 99 99 99 O2 Flow Rate 0 0 Laboratory Tests Test 12/26/24 01:45 12/26/24 01:53 White Blood Count 8.6 Red Blood Count 4.09 L Hemoglobin 12.6 L Hematocrit 36.4 L Mean Corpuscular Volume 89.0 Mean Corpuscular Hemoglobin 30.8 Mean Corpuscular Hemoglobin Concent 34.6 Red Cell Distribution Width 14.1 Platelet Count 463 H Mean Platelet Volume 6.1 L Neutrophils (%) (Auto) 56.1 Lymphocytes (%) (Auto) 31.4 Monocytes (%) (Auto) 8.4 Eosinophils (%) (Auto) 3.0 Basophils (%) (Auto) 1.1 H Neutrophils # (Auto) 4.8 Lymphocytes # (Auto) 2.7 Monocytes # (Auto) 0.7 Eosinophils # (Auto) 0.3 Basophils # (Auto) 0.1 CBC Comment Sodium Level 138 Potassium Level 4.1 Chloride Level 102 Carbon Dioxide Level 30.4 Anion Gap 6 L Blood Urea Nitrogen 11 Creatinine 0.83 Estimated GFR/1.73 m2 > 90 BUN/Creatinine Ratio 13.3 Glucose Level 88 Calcium Level 8.7 Troponin I High Sensitivity 12 Pro-B-Type Natriuretic Peptide 270 H Albumin 3.2 L Chemistry Comments SARS-CoV-2 Antigen (Rapid) Negative Medical Decision Making Findings Patient presents to the emergency room for evaluation of shortness of breath. Differentials include but are not limited to pneumonia, viral syndrome, CHF exacerbation, COPD exacerbation. No wheezing on physical exam. Chest x-ray is reassuring as are labs. Unknown cause for patient's subjective shortness of breath. I do not suspect pulmonary embolism. Possible viral syndrome. Upon re-evaluation patient was sleeping comfortably with a heart rate of 57 saturating 97% on room air with stable blood pressures Departure Disposition: 01 HOME / SELF CARE / HOMELESS Impression: Primary Impression: Dyspnea Condition: Stable Discharge Instructions: Viral Syndrome Referrals: NO PRIMARY CARE PROVIDER (PCP) Signature Scribe Signature: No scribe Attestation: The note accurately reflects work and decisions made by me.Dexter Byrne MD 12/26/24 02:38 DEXTER BYRNE MD Dec 26, 2024 01:38
--- NOTE | 2024-12-26 01:46 | RADIOLOGY REPORT ---
CHEST RADIOGRAPH Indication: CP Technique: Single frontal view of the chest was obtained COMPARISON: DI CHEST,TWO VIEWS on DOS: 06/22/24 FINDINGS: Lines and Tubes: None Lungs: Clear Pleura: No effusion. No pneumothorax. Cardiomediastinal contours: Unremarkable Bones: Unremarkable IMPRESSION: 1. No acute disease.
[2024-12-26 01:56] LABS: MEAN PLATELET VOLUME 6.1 FL (7.4-10.4); RED CELL DISTRIBUTION WIDTH 14.1 % (11.5-14.5)
[2024-12-26 02:15] LABS: CREATININE 0.83 MG/DL (0.60-1.10); PRO BRAIN NATRIURETIC PEPTIDE 270 PG/ML (0-125); TOTAL CARBON DIOXIDE 30.4 MMOL/L (24-32); eCRCL 102 ML/MIN; eGFR > 90 ML/MIN
[2024-12-26 02:16] VITALS: RESP 16
[2024-12-26 03:24] VITALS: BP 111/67; PULSE 67; O2SAT 99
== END 2024-12-26 03:26 | disposition home or self-care (01) ==
LOC: ER 01:07
DX: R06.02 Shortness of breath (principal); G89.29 Other chronic pain; F12.90 Cannabis use, unspecified, uncomplicated; F15.90 Other stimulant use, unspecified, uncomplicated; M19.90 Unspecified osteoarthritis, unspecified site; Z88.0 Allergy status to penicillin; Z79.899 Other long term (current) drug therapy; Z20.822 Contact with and (suspected) exposure to COVID-19
CPT/HCPCS: 36415; 71045; 80048; 83880; 84484; 85025; 87811; 93005; 99285

== ENCOUNTER 2025-03-15 02:02 | Emergency (ER) | payer MEDICAID ==
[~2025-03-15] VITALS: Ht 188 cm; Wt 77.3 kg
[~2025-03-15 02:02] MED LIST changes: -DOXY-411 PO
--- NOTE | 2025-03-15 05:32 | Physician Documentation ---
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 The patient says he takes two strips in the morning and one strip at night. He has a presc ription but has not been able to pick it up however he says it is nevertheless he can go to the [facility] today which should be open although may not be open at 8:00 a.m. normal time because of the holiday. Patient is feeling shaky has some chills he has cold but no vomiting no diarrhea. Does not feel well. He is otherwise here for evaluation. Medication Reconciliation Allergies: Coded Allergies: Penicillins (Verified Adverse Reaction, Unknown, 03/15/25) Scheduled Clindamycin HCL* (Clindamycin HCL*), 1 CAP PO Q6H Clindamycin HCl (Clindamycin HCl CAPSULE), 1 CAP PO TID Indomethacin (Indomethacin), 1 CAP PO Q8H Scheduled PRN Hydroxyzine Hcl* (Atarax*), 1 TAB PO QID PRN for anxiety, (Reported) ONDANSETRON ODT 4mg tablet (Ondansetron Odt), 1 TAB PO Q6H PRN PRN for nausea/vomiting Miscellaneous Medications Buprenorphine HCl/Naloxone HCl (Buprenorphine-Nalox 8-2Mg Film), (Reported) Gabapentin (Gabapentin), 1, (Reported) Naloxone HCl (Naloxone HCl), (Reported) Past Medical History Past Medical History: Arthritis, Chronic Back Pain, Extremity Fracture Past Surgical History: no surgical history Alcohol Use: Abuse Drug Use: marijuana, methamphetamine Lives In: Home Occupation: employed Review of Systems All Other Systems at this time: Reviewed and Negative Physical Exam Physical Exam Vital Signs: RN Vital Signs have been reviewed: Yes, Heart Rate: 78, Respir atory Rate: 18, BP: 136/82, Pulse Oximetry: 99, Weight: 77.270 Oxygen Flow Rate: 0 Physical Exam General: The patient is well developed, well nourished, nontoxic appearing and is in no acute distress. Anxious Skin: [place], warm and dry with no rashes. HEENT: Head was normocephalic and atraumatic. Eyes - pupils equal, round, reactive to light and accommodation. Extraocular movements were intact. Conjunctivae were nonicteric. The mouth and oropharynx were clear with moist mucous membranes. Neck: Supple and nontender. There was no jugular venous distention, Chest: Clear to auscultation bilaterally without wheezes Heart: Rate regular and rhythmic. Abdomen: Soft, nontender and nondistended. Positive bowel sounds. Extremities: No cyanosis, clubbing or edema. The patient moves all extremities. Pulses were equal and symmetric. Neurologic: Motor sensory grossly intact Psychologic: The patient was oriented to person, place and time. The patient demonstrated appropriate judgement and insight. Progress Results/Orders Reviewed/noted all lab results: Yes Results/Orders Orders - SUNNY WRIGHT MD Buprenorphine/Naloxone Sl Film (Suboxone (03/15/25 05:50) Completed Orders - SUNNY WRIGHT MD Buprenorphine/Naloxone Sl Film (Suboxone (03/15/25 05:40) Medications Received in ER Medications (Trade) Dose Ordered Sig/Dusty Route PRN Reason Start Time Stop Time Status Last Admin Dose Admin (Suboxone 8MG-2MG SL film) 2 film ONCE SL 03/15/25 05:50 03/15/25 05:59 2 FILM Vital Signs 03/15/25 03/15/25 02:11 05:29 Pulse 65 78 Resp 16 18 B/P (MAP) 117/55 136/82 (100) Pulse Ox 96 99 O2 Flow Rate 0 Re-Evaluation Re-Evaluation : Re-Evaluation: Improved Progress Patient tolerated a meal doing better was discharged home Medical Decision Making Additional information obtaine: old records Findings Withdrawal symptoms, opiate abuse was considered Differential Dx:Considerations: Include: Adverse circumstances, Economic, Psychosocial, Medical services unavail., Medication refill, Medication non- compliance, Other Departure Disposition: 01 HOME / SELF CARE / HOMELESS Impression: Primary Impression: Opiate dependence Qualified Codes: F11.20 - Opioid dependence, uncomplicated Additional Impression: Opiate withdrawal Condition: Stable Discharge Instructions: Medical Screening Exam Referrals: NO PRIMARY CARE PROVIDER (PCP) Education Educated: Patient Educated regarding: diagnosis Signature Scribe Signature: n Attestation: The note accurately reflects work and decisions made by me.Sunny Wright MD 03/15/25 06:22 SUNNY WRIGHT MD Mar 15, 2025 05:32
[2025-03-15] MEDS ORDERED: buprenorphine/naloxone 8MG-2MG SUBlingual film SL SCH (05:40)
[2025-03-15] MEDS: buprenorphine/naloxone 8MG-2MG SUBlingual film SL SCH (05:59)
[2025-03-15 06:30] VITALS: BP 136/88; PULSE 88; RESP 18; O2SAT 97
[2025-03-15] MEDS: buprenorphine/naloxone 8MG-2MG SUBlingual film SL ONE (06:30)
== END 2025-03-15 06:34 | disposition home or self-care (01) ==
LOC: ER 02:03
DX: F11.23 Opioid dependence with withdrawal (principal); G89.29 Other chronic pain; M19.90 Unspecified osteoarthritis, unspecified site; F12.90 Cannabis use, unspecified, uncomplicated; F15.90 Other stimulant use, unspecified, uncomplicated; F10.10 Alcohol abuse, uncomplicated; Z76.0 Encounter for issue of repeat prescription; Z88.0 Allergy status to penicillin; Z79.899 Other long term (current) drug therapy; Y90.9 Presence of alcohol in blood, level not specified
CPT/HCPCS: 99283

== ENCOUNTER 2025-04-05 07:20 | Emergency (ER) | payer MEDICAID ==
[~2025-04-05] VITALS: Ht 188 cm; Wt 70.7 kg
[2025-04-05 07:25] VITALS: TEMP 98.1
--- NOTE | 2025-04-05 08:06 | Physician Documentation ---
History of Present Illness General Chief Complaint: Narcotic Withdrawl Stated Complaint: MENTAL HEALTH BREAKDOWN Time Seen by MD: 08:05 Primary Medical Doctor: Leti JAUREGUI Mode of Arrival: Ambulatory History of Present Illness Initial Comments Patient is a 54-year-old male states he has been feeling well since last night he states he has been cold and feeling weak. Patient denies any shortness of breath the patient states he is on Suboxone the patient states he has been cold and it has been raining out. The patient denies any acute suicidal thoughts he just states he is stressed out. Patient states he has been on Suboxone and he has been 12 years sober. Patient requested something for his anxiety states he is on hydroxyzine in his willing to take a dose he has also asking for a dose of his gabapentin Medication Reconciliation Allergies: Coded Allergies: Penicillins (Verified Adverse Reaction, Unknown, 04/05/25) Scheduled PRN Hydroxyzine Hcl* (Atarax*), 1 TAB PO QID PRN for anxiety, (Reported) ONDANSETRON ODT 4mg tablet (Ondansetron Odt), 1 TAB PO Q6H PRN PRN for nausea/vomiting Miscellaneous Medications Buprenorphine HCl/Naloxone HCl (Buprenorphine-Nalox 8-2Mg Film), (Reported) Gabapentin (Gabapentin), 1, (Reported) Naloxone HCl (Naloxone HCl), (Reported) Discontinued Medications Clindamycin HCL* (Clindamycin HCL*), 1 CAP PO Q6H Discontinued Reason: patient no longer taking Clindamycin HCl (Clindamycin HCl CAPSULE), 1 CAP PO TID Discontinued Reason: patient no longer taking Indomethacin (Indomethacin), 1 CAP PO Q8H Discontinued Reason: patient no longer taking Past Medical History Past Medical History: Arthritis, Chronic Back Pain, Extremity Fracture Past Surgical History: no surgical history Alcohol Use: Abuse Drug Use: marijuana, methamphetamine Lives In: Home Occupation: employed Review of Systems All Other Systems at this time: Reviewed and Negative Physical Exam Physical Exam Vital Signs: Temperature: 98.1, Source: Temporal, Heart Rate: 62, Respiratory Rate: 20, BP: 130/77, Pulse Oximetry: 99, Weight: 70.700 Oxygen Flow Rate: 0 Physical Exam VITALS: Reviewed and as above. GENERAL: Alert, no apparent distress. HEENT: Normocephalic, atraumatic, PERRL, EOMI, dry mucosa, no erythema no posterior pharyngeal erythema or exudates RESPIRATORY: Lungs clear, normal breath sounds, no respiratory distress. CHEST: No accessory muscle use, no retractions CV: Regular rate, rhythm, no edema, no murmur, No: JVD GI: Soft, non-tender, bowels sounds present, no rebound, guarding, or rigidity BACK: No CVA tenderness, or swelling MUSCULOSKELETAL: No deformities, no edema SKIN: Warm and dry, no rash NEURO: Oriented x4, No motor or sensory deficit PSYCH: Normal mood and affect, no agitation Progress Results/Orders Results/Orders Completed Orders - RODO BRISCOE MD Gabapentin Capsule (Neurontin Capsule) (04/05/25 08:13) Hydroxyzine Tablet (Atarax Tablet) (04/05/25 08:15) Vital Signs 04/05/25 04/05/25 04/05/25 04/05/25 07:25 07:45 07:59 08:28 Temp 98.1 Pulse 72 62 64 Resp 18 20 20 14 B/P (MAP) 132/87 130/77 (94) 136/85 Pulse Ox 100 99 100 O2 Flow Rate 0 0 Medical Decision Making Additional information obtaine: old records Findings well appearing with no apparent acute medical condition will discharge Differential Diagnosis n Departure Disposition: 01 HOME / SELF CARE / HOMELESS Impression: Primary Impression: General medical exam Discharge Instructions: General Discharge Instructions Referrals: NO PRIMARY CARE PROVIDER (PCP) Signature Scribe Signature: no scribe Attestation: The note accurately reflects work and decisions made by me.Rodo Briscoe MD 04/06/25 20:53 RODO BRISCOE MD Apr 05, 2025 08:06
[2025-04-05 08:28] VITALS: BP 136/85; PULSE 64; RESP 14; O2SAT 100
== END 2025-04-05 08:31 | disposition home or self-care (01) ==
LOC: ER 07:20
DX: Z00.00 Encounter for general adult medical examination without abnormal findings (principal); F41.9 Anxiety disorder, unspecified; G89.29 Other chronic pain; F12.90 Cannabis use, unspecified, uncomplicated; F15.90 Other stimulant use, unspecified, uncomplicated; M19.90 Unspecified osteoarthritis, unspecified site; Z88.0 Allergy status to penicillin
CPT/HCPCS: 99283; Q0177